=== PATIENT | female | born 1965 | race Caucasian/White ===

== ENCOUNTER 2017-03-26 21:13 | Inpatient (IN) | payer OTHER ==
[~2017-03-26] VITALS: Ht 165.1 cm; Wt 71.7 kg
--- NOTE | 2017-03-26 21:40 | NUR ---
PT BIBA FOR INCREASED ALOC. VSS. WARM TO TOUCH. AWAITNG FOR EVAL. CONFUSED. IV ACCESS STARTED, BLOOD DRAWN FOR LABS. SAFETY AND COMFORT MEASURES PROVIDED. WILL MONITOR.
--- NOTE | 2017-03-26 22:05 | NUR ---
AT ROSANNA JURADO
[2017-03-26 22:08] LABS: BASOPHILS % (AUTO) 0.3 % (0.0-2.0); EOSINOPHILS # (AUTO) 0.1 /CMM (0.0-0.7); EOSINOPHILS % (AUTO) 1.6 % (0.0-6.0); HEMATOCRIT 34 % (33-45); HEMOGLOBIN 11.5 g/dL (11.5-14.8); LYMPHOCYTES # (AUTO) 1.3 /CMM (0.8-4.8); LYMPHOCYTES % (AUTO) 27.5 % (20.0-44.0); MEAN CORPUSCULAR HEMOGLOBIN 30 PG (26.0-33.0); MEAN CORPUSCULAR HGB CONC 34 g/dl (31.0-36.0); MEAN CORPUSCULAR VOLUME 91 fL (82-100); MONOCYTES # (AUTO) 0.5 /CMM (0.1-1.30); MONOCYTES % (AUTO) 10.1 % (2.0-12.0); NEUTROPHILS # (AUTO) 2.9 /CMM (1.8-8.9); NEUTROPHILS % (AUTO) 60.5 % (43.0-81.0); RDW COEFFICIENT OF VARIATION 20.9 (11.5-15.0); RED BLOOD CELL COUNT(AUTO) 3.79 MIL/uL (4.0-5.2); WHITE BLOOD COUNT (AUTO) 4.8 K/uL (4.3-11.0)
[2017-03-26 22:10] LABS: PLATELET COUNT (AUTO) 50 /CMM (150-450)
--- NOTE | 2017-03-26 22:14 | NUR ---
PT MEDICATED ORDERED.
[2017-03-26 22:15] LABS: APPEARANCE,URINE CLEAR (CLEAR); BILIRUBIN,URINE NEGATIVE (NEGATIVE); BLOOD, URINE NEGATIVE Ery/uL (NEGATIVE); KETONES,URINE NEGATIVE (NEGATIVE); LEUKOCYTE ESTERASE ,URINE TRACE (NEGATIVE); NITRITE, URINE NEGATIVE (NEGATIVE); PROTEIN,URINE NEGATIVE (NEGATIVE); UGLUCOSE NEGATIVE (NEGATIVE); UROBILINOGEN,URINE 0.2 EU/dL (0.2)
[2017-03-26 22:23] LABS: INR 1.11 (0.87-1.13); PROTHROMBIN TIME 11.6 SECS (9.5-12.7)
[2017-03-26 22:24] LABS: ALANINE AMINOTRANSFERASE 45 U/L (12-78); ALBUMIN 3.5 g/dL (3.4-5.0); ALKALINE PHOSPHATASE 120 U/L (46-116); ASPARTATE AMINOTRANSFERASE 54 U/L (15-37); BILIRUBIN,DIRECT 0.4 mg/dL (0.0-0.2); BILIRUBIN,TOTAL 1.2 mg/dL (0.2-1.0); CALCIUM, SERUM 9.1 mg/dL (8.5-10.1); CARBON DIOXIDE 24 mmol/L (21-32); CHLORIDE 109 mmol/L (98-107); CREATININE 0.8 mg/dL (0.6-1.3); GLUCOSE 139 mg/dL (74-106); POTASSIUM 4.1 mmol/L (3.5-5.1); SODIUM SERUM 143 mmol/L (136-145); TOTAL PROTEIN, SERUM 7.2 g/dL (6.4-8.2)
[2017-03-26 22:30] LABS: COLOR,URINE STRAW (YELLOW)
[2017-03-26] MEDS ORDERED: IV NS 0.9% 500 ML BAG IV ONE (22:30)
[2017-03-26 22:33] LABS: TROPONIN I < 0.017 ng/mL (0.00-0.056)
[2017-03-26 22:34] LABS: BACTERIA,URINE None seen /HPF (None Seen); RBC,URINE 0-2 /HPF (0-2); SQUAMOUS EPITHELIAL CELL,UR Few /HPF (None Seen); WBC,URINE 0-2 /HPF (0-3)
[2017-03-26 22:36] LABS: UREA NITROGEN, BLOOD 15 mg/dL (7-18)
[2017-03-26 22:37] LABS: ACETAMINOPHEN 0 ug/ml (10-30); SALICYLATE < 0.2 mg/dL (2.8-20.0)
[2017-03-26 22:50] LABS: SERUM AMMONIA 222 umol/L (11-32)
[2017-03-26] MEDS ORDERED: METRONIDAZOLE 500MG/ NS 100ML 100 ML IV ONE (23:18)
[2017-03-26] MEDS ORDERED: LACTULOSE 10 G/15 ML UDC (PYXIS) ONE (23:19)
[2017-03-26] MEDS ORDERED: FLAGYL/NS RTU 500 MG/100 ML PIGGYBACK IV ONE (23:30)
[2017-03-26] MEDS ORDERED: LACTULOSE 10 G/15 ML UDC (PYXIS) PO ONE (23:30)
[2017-03-26] MEDS ORDERED: NEOMYCIN SULFATE (500MG) 500 MG TABLET PO ONE (23:30)
[2017-03-26] MEDS ORDERED: ZINC SULFATE 220 MG CAPSULE PO SCH (23:30)
--- NOTE | 2017-03-26 23:30 | NUR ---
DR. ACEVEDO AT BS.
--- NOTE | 2017-03-26 23:31 | NUR ---
PT MEDICATED ORDERED. [place] [facility] [place] IN THE [facility].
[2017-03-26] MEDS ORDERED: NEOMYCIN SULFATE (500MG) 500 MG TABLET ONE (23:36)
[2017-03-26] MEDS ORDERED: ZINC SULFATE 220 MG CAPSULE ONE (23:38)
[2017-03-26 23:46] LABS: EOSINOPHILS % (MANUAL) 3 % (0-4); LYMPHOCYTES % (MANUAL) 17 % (16-48); MONOCYTES % (MANUAL) 6 % (0-11.0); NEUTROPHILS % (MANUAL) 74 (42-76)
--- NOTE | 2017-03-27 00:05 | NUR ---
REPORT GIVEN TO YAMIL LIZ FOR MS [facility].
--- NOTE | 2017-03-27 01:00 | NUR ---
TRANSFERED TO [facility] FLOOR IN STABLE CONDITION. NO S/S OF DISTRESS NOTED.
[2017-03-27] MEDS ORDERED: ONDANSETRON HCL/PF 4 MG/2 ML VIAL IVP PRN ×2 (01:15)
[2017-03-27] MEDS ORDERED: HYDROCODONE/APAP 5/325MG 1 EACH TABLET PO PRN ×2 (01:15)
[2017-03-27] MEDS ORDERED: ACETAMINOPHEN 325 MG TABLET PO PRN ×2 (01:15)
[2017-03-27] MEDS ORDERED: MAG HYDROX/AL HYDROX/SIMETH 30 ML UDC PO PRN ×2 (01:15)
[2017-03-27] MEDS ORDERED: Z GUARD REMEDY 2 OZ OINT TP PRN ×2 (01:15)
[2017-03-27] MEDS ORDERED: ZOLPIDEM TARTRATE 5 MG TABLET PO PRN ×2 (01:15)
[2017-03-27] MEDS ORDERED: MAGNESIUM HYDROXIDE 30 ML UDC PO PRN ×2 (01:15)
[2017-03-27 01:20] VITALS: BP 145/82
--- NOTE | 2017-03-27 01:40 | NUR ---
MS/RN NOTES: RECEIVED PATIENT FROM E. VIA STRETCHER. PT. TRANSFERED TO BED TOLERATED WELL. A/O X 1 KNOWS HER NAME AND . PT. CONFUSED NOTED TO HAVE NONSENSICAL SENTENCES. PT. IS REQUESTING TO CALL HER DAUGHTER . PT. STATED HER DAUGHTERS NAME TO BE 3 DIFFERENT NAMES. UNABLE TO GIVE REAL PHONE #. WHEN ASKED REGARDING PHONE # SHE GAVES US DIFFERENT # EVERY TIME. BREATHING EVEN AND UNLABORED. HL ON LAC # 20 PATENT AND INTACT W/ NO S/S OF INFECTION/INFILTRATION NOTED. BILATERAL LOWER EXTREMITIES NOTED W/ RASH. PICTURES TAKEN AND DOCUMENTED PER PROTOCOL. CALL LIGHT W/ REACH. ALL NEEDS MEET.
[2017-03-27 04:00] VITALS: BP 143/70
--- NOTE | 2017-03-27 07:00 | NUR ---
MS/RN NOTES: RECEIVED PATIENT FROM E.. VIA STRETCHER. PT. TRANSFERED TO BED TOLERATED WELL. A/O X 1 KNOWS HER NAME AND . PT. CONFUSED NOTED TO HAVE NONSENSICAL SENTENCES. BREATHING EVEN AND UNLABORED. HL ON LAC # 20 PATENT AND INTACT W/ NO S/S OF INFECTION/INFILTRATION NOTED. CALL LIGHT W/ REACH. ALL NEEDS MEET.
[2017-03-27 07:02] LABS: BASOPHILS % (AUTO) 0.2 % (0.0-2.0); EOSINOPHILS # (AUTO) 0.1 /CMM (0.0-0.7); EOSINOPHILS % (AUTO) 1.1 % (0.0-6.0); HEMATOCRIT 32 % (33-45); HEMOGLOBIN 10.9 g/dL (11.5-14.8); LYMPHOCYTES # (AUTO) 0.9 /CMM (0.8-4.8); LYMPHOCYTES % (AUTO) 20.1 % (20.0-44.0); MEAN CORPUSCULAR HEMOGLOBIN 31 PG (26.0-33.0); MEAN CORPUSCULAR HGB CONC 34 g/dl (31.0-36.0); MEAN CORPUSCULAR VOLUME 90 fL (82-100); MONOCYTES # (AUTO) 0.4 /CMM (0.1-1.30); MONOCYTES % (AUTO) 8.4 % (2.0-12.0); NEUTROPHILS # (AUTO) 3.2 /CMM (1.8-8.9); NEUTROPHILS % (AUTO) 70.2 % (43.0-81.0); RDW COEFFICIENT OF VARIATION 20.3 (11.5-15.0); RED BLOOD CELL COUNT(AUTO) 3.56 MIL/uL (4.0-5.2); WHITE BLOOD COUNT (AUTO) 4.6 K/uL (4.3-11.0)
[2017-03-27 07:20] LABS: CALCIUM, SERUM 8.7 mg/dL (8.5-10.1); CREATININE 0.6 mg/dL (0.6-1.3); MAGNESIUM 1.7 mg/dL (1.8-2.4); PHOSPHORUS 3.8 mg/dL (2.5-4.9); POTASSIUM 4.2 mmol/L (3.5-5.1)
[2017-03-27] MEDS ORDERED: PANTOPRAZOLE 40 MG TABLET.DR PO SCH (07:30)
[2017-03-27 07:55] LABS: PLATELET COUNT (AUTO) 47 /CMM (150-450)
[2017-03-27 08:00] VITALS: BP 141/73
[2017-03-27 09:45] LABS: BAND % (MANUAL) 1 % (0.0-5.0); EOSINOPHILS % (MANUAL) 2 % (0-4); LYMPHOCYTES % (MANUAL) 13 % (16-48); MONOCYTES % (MANUAL) 7 % (0-11.0); NEUTROPHILS % (MANUAL) 77 (42-76)
[2017-03-27] MEDS: PANTOPRAZOLE 40 MG TABLET.DR PO SCH (11:05)
[2017-03-27] MEDS: LACTULOSE 10 G/15 ML UDC (PYXIS) PO SCH ×3 (12:40→21:20)
[2017-03-27] MEDS: Magnesium 1GM/D5W 100ML PREMIX 100 ML IV SCH ×2 (12:40→15:47)
[2017-03-27 16:00] VITALS: BP_SYST 144; BP_SYST 147; BP_DIAS 74
[2017-03-27] MEDS ORDERED: DEXTROSE 50%-WATER 50 ML DISP.SYRIN IV PRN (16:30)
[2017-03-27] MEDS: BLOOD SUGAR DIAGNOSTIC 1 EACH STRIP IN SCH ×2 (17:15→21:23)
[2017-03-27] MEDS: INSULIN REGULAR, HUMAN 100 UNIT/ML 3 ML VIAL SQ PRN ×2 (17:56→21:25)
--- NOTE | 2017-03-27 19:00 | NUR ---
RN NOTE SPOKE TO PT'S DAUGHTER AND SHE REPORTED HOME MEDS FOR PT, WROTE DOWN ON PAPER, WILL ENDORSE TO GEOTHERMAL OPERATING ENGINEER NURSE TO ENTER INTO THE COMPUTER AND FOLLOW UP WITH MD.
--- NOTE | 2017-03-27 19:30 | NUR ---
MS/RN NOTES: RECEIVED PT. IN BED A/O X 2-3. NOT IN ANY ACUTE DISTRESS NOTED. CALL LIGHT W/ REACH. CONTINENT W/ BRP. WILL CONTINUE TO MONITOR.
[2017-03-27] MEDS ORDERED: AMLO10TA2 PO (19:50)
[2017-03-27] MEDS ORDERED: GABA-534 PO (19:50)
[2017-03-27] MEDS ORDERED: ATOR20TA PO (19:50)
[2017-03-27] MEDS ORDERED: BENA20TA2 PO (19:50)
[2017-03-27] MEDS ORDERED: FOLI1TAB16 PO (19:50)
[2017-03-27] MEDS ORDERED: METF10002 PO (19:50)
[2017-03-27] MEDS ORDERED: ASCO-340 PO (19:50)
[2017-03-27] MEDS ORDERED: MECL-102 PO (19:50)
[2017-03-27 20:00] VITALS: BP 142/79
[2017-03-27] MEDS: AMLODIPINE BESYLATE 10 MG TABLET PO SCH (21:21)
[2017-03-27] MEDS ORDERED: INSULIN DETEMIR 100 UNIT/ML CARTRIDGE SQ SCH (22:00)
[2017-03-27] MEDS ORDERED: ATORVASTATIN 10 MG TABLET PO SCH (22:00)
[2017-03-28] MEDS: LACTULOSE 10 G/15 ML UDC (PYXIS) PO SCH ×4 (01:12→12:13)
[2017-03-28 04:00] VITALS: BP 132/72
--- NOTE | 2017-03-28 06:30 | NUR ---
RN/MS NOTES: REPORT GIVEN TO NEXT SHIFT NURSE. NOT IN ANY DISTRESS NOTED. ALL DUE MEDS GIVEN AND TOLERATED WELL. CALL LIGHT W/REACH.
[2017-03-28 06:52] LABS: CALCIUM, SERUM 8.5 mg/dL (8.5-10.1); CREATININE 0.7 mg/dL (0.6-1.3); MAGNESIUM 1.7 mg/dL (1.8-2.4); POTASSIUM 3.5 mmol/L (3.5-5.1)
--- NOTE | 2017-03-28 07:12 | NUR ---
RN INITIAL NOTES: REC'D PT AWAKE ON BED, NOT IN ANY DISTRESS, A/OX 3, ABLE TO MAKE NEEDS KNOWN, DENIES ANY PAIN/DISCOMFORT. HAS L AC G20, SL, FLUSHED, PATENT & INTACT W/ NO S/SX OF INFECTION/INFILTRATION NOTED. PT IS AMBULATORY W/ STEADY GAIT. PROVIDED COMFORT & SAFETY MEASURES. BED KEPT LOW & IN LOCKED POS. CALL LIGHT PLACED W/IN REACH. WILL CONTINUE TO MONITOR AND ATTEND PT'S NEEDS.
[2017-03-28 08:00] VITALS: BP 130/80
[2017-03-28] MEDS: BLOOD SUGAR DIAGNOSTIC 1 EACH STRIP IN SCH ×2 (08:14→12:08)
[2017-03-28] MEDS: INSULIN REGULAR, HUMAN 100 UNIT/ML 3 ML VIAL SQ PRN ×2 (08:15→12:14)
[2017-03-28 08:31] VITALS: BP 130/80
[2017-03-28] MEDS: GABAPENTIN 300 MG CAPSULE PO SCH ×2 (08:31→12:13)
[2017-03-28] MEDS: PANTOPRAZOLE 40 MG TABLET.DR PO SCH (08:31)
[2017-03-28] MEDS: MECLIZINE HCL 25 MG TABLET PO SCH ×2 (08:31→12:13)
[2017-03-28] MEDS: AMLODIPINE BESYLATE 10 MG TABLET PO SCH (08:31)
[2017-03-28] MEDS ORDERED: ASCORBIC ACID 500 MG TABLET PO SCH (09:00)
[2017-03-28] MEDS ORDERED: BENAZEPRIL HCL 20 MG TABLET PO SCH (09:00)
[2017-03-28] MEDS ORDERED: FOLIC ACID 1 MG TABLET PO SCH (09:00)
--- NOTE | 2017-03-28 11:09 | NUR ---
RN NOTES: PT SEEN & EXAMINED BY DR. SALGADO. PER MD, PT MAY DC TO HOME.
[2017-03-28] MEDS: Magnesium 1GM/D5W 100ML PREMIX 100 ML IV SCH ×2 (12:12→13:24)
[2017-03-28] MEDS ORDERED: PNEUMOCOCCAL 23-VAL P-SAC VAC 0.5 ML VIAL SQ ONE (14:00)
--- NOTE | 2017-03-28 15:00 | NUR ---
RN NOTES: PT REQUESTED FOR PNEUMOVACCINE PRIOR TO DC. PER PT'S CONDITION, HX AND COMORBIDITIES, PT QUALIFIES FOR PNEUMOVACCINE. PNEUMOVACCINE GIVEN ORDERED. MONITORED FOR ANY UNTOWARD S/SX PRIOR TO DC.
--- NOTE | 2017-03-28 15:34 | NUR ---
HOISTER NOTES: PT DC'D TO HOME, SELF CARE ORDERED. DC INSTRUCTION AND DOCUMENTS W/ PRESCRIPTION GIVEN AND EXPLAINED TO THE PT W/ VERBALIZATION OF UNDERSTANDING. IV ACCESS REMOVED, PRESSURE DRESSING APPLIED, NO INFECTION NOTED. MAGNESIUM IV 2 GMS GIVEN PRIOR TO DC. ALL BELONGINGS CHECKED BY STORE RECEIVER AND SENT W/ PT. BELONGING LISTS SIGNED BY PT. NO CONCERNS IDENTIFIED AT THIS TIME. PT LEFT THE FACILITY IN STABLE CONDITION VIA WHEELCHAIR ACCOMPANIED BY PETRA AND DAUGHTERS. Addendum: 03/28/17 at 1725 by ZARIA CHILDERS RN ADDENDUM: NO NEGATIVE REACTION NOTED ON THE PNEUMOVACCINE SITE. PT TOLERATED WELL. Addendum: 03/28/17 at 1727 by ZARIA CHILDERS RN ADDENDUM: WOUND PHOTOS TAKEN PRIOR TO DC AND PLACED IN CHART.
== END 2017-03-28 15:25 | disposition home or self-care (01) | DRG 279 ==
LOC: ER 21:16 → MEDSG1 03-27 01:19
PROVIDERS: ADMIT Internal Medicine; ATTEND Internal Medicine
DX: K72.90 Hepatic failure, unspecified without coma (principal); D69.59 Other secondary thrombocytopenia; K76.6 Portal hypertension; D63.8 Anemia in other chronic diseases classified elsewhere; K74.60 Unspecified cirrhosis of liver; R74.0 Nonspecific elevation of levels of transaminase and lactic acid dehydrogenase [LDH]
CPT/HCPCS: 36415; 70450-TC; 71010-TC; 76700-TC; 80048-TC; 80076-TC; 81000-TC; 82140-TC; 82962-TC; 83735-TC; 84100-TC; 84484-TC; 85025-TC; 85730-TC; 87081-TC; 90732; A4606; G0480; J1815; J3475; J3490; J7040; J8597; Z7610